=== PATIENT | male | born 1960 | race African-American/Black ===

== ENCOUNTER 2019-07-12 12:21 | Emergency (ER) | payer OTHER, BC ==
[2019-07-12] MEDS ORDERED: DICYCLOMINE HCL 10 MG CAP ONE (13:04)
[2019-07-12] MEDS ORDERED: ONDANSETRON 4 MG/2 ML VIAL ONE (13:04)
[2019-07-12] MEDS ORDERED: FAMOTIDINE 20 MG/2 ML VIAL IV ONE (13:04)
[2019-07-12] MEDS ORDERED: NA CHLORIDE 0.9% 1,000 ML ONE ×2 (13:04→14:47)
[2019-07-12 13:29] LABS: Absolute Lymphocytes (CBC) 0.7 K/uL (0.7-4.9); Basophils % 0.3 % (0-1.3); Hematocrit 41.8 % (39.6-49.0); MPV 6.9 fL (7.6-11.3); RBC Red Blood Cell Count 4.73 M/uL (4.33-5.43)
[2019-07-12 14:14] LABS: ALT/SGPT 29 U/L (12-78); AST/SGOT 14 U/L (15-37); Albumin 2.8 g/dL (3.4-5.0); Alkaline Phosphatase 69 U/L (45-117); BUN Blood Urea Nitrogen 12 mg/dL (7-18); Bicarbonate 25 mmol/L (21-32); Bilirubin Direct 0.2 mg/dL (0-0.2); Bilirubin Total 0.4 mg/dL (0.2-1.0); Glucose Level 94 mg/dL (74-106); Lipase 48 U/L (73-393); Magnesium 2.2 mg/dL (1.8-2.4); Protein, Total 6.6 g/dL (6.4-8.2); Sodium Level 137 mmol/L (136-145)
[2019-07-12] MEDS ORDERED: KCL 20 MEQ/100 mL IVPB 20 MEQ/100 ML BAG IV ONE (14:47)
--- NOTE | 2019-07-12 14:59 | RAD REPORT ---
EXAM DESCRIPTION: CT - Abdomen Pelvis W Contrast - 07/12/2019 2:33 pm CLINICAL HISTORY: Abdominal pain with diarrhea COMPARISON: none. TECHNIQUE: Computed axial tomography of the abdomen pelvis was obtained. 100 cc Isovue-300 was admin istered intravenously. Oral contrast was not requested which limits evaluation of bowel. All CT scans are performed using dose optimization technique as appropriate and may include automated exposure control or mA/KV adjustment according to patient size. FINDINGS: Small right pleural effusion A 35 millimeter mass abuts the upper pole of the left kidney and left adrenal gland. The liver, spleen, pancreas, and right kidney appear unremarkable. Normal appendix Diverticula stem from the colon without evidence of diverticulitis. 2 centimeter area of narrowing involves the transverse colon Spondylosis involves the lumbar spine Fluid is present throughout several loops of nondilated and borderline dilated small bowel. Small sherman unt of ascites IMPRESSION: A 2 centimeter area of narrowing involving the transverse colon may be secondary to a ma ss or spasm. Colonoscopy recommended 35 millimeter mass abuts the upper pole left kidney and left adrenal gland. I suspect arises from the left adrenal gland. However, it is possible it arises from the kidney. MRI is recommended Fluid is present throughout several loops of nondilated and borderline dilated small bowel which may indicate an enteritis
--- NOTE | 2019-07-12 15:55 | EDPHYS ---
Physician Documentation [facility] Name: Dean Dye Jr Age: 58 yrs Sex: Male : 1960 Arrival Date: 07/12/2019 Time: 12:23 Bed 18 Private MD: ED Physician Russell Quiroga HPI: 07/12 13:05 This 58 yrs old Black Male presents to ER via Ambulatory with complaints of Diarrhea, cp Abdominal Cramping. 13:05 The patient presents to the emergency department with nausea, that is moderate, cp vomiting, that is intermittent, diarrhea, that is continuous, abdominal pain, of the abdomen diffusely. 13:05 Onset: The symptoms/episode began/occurred 4 day(s) ago. Possible causes: unknown. cp Associated signs and symptoms: Pertinent positives: fever, Pertinent negatives: constipation, dysuria, GI bleeding. Severity of symptoms: in the emergency department the symptoms are unchanged. Historical: - Allergies: 12:30 No Known Allergies; ch - Home Meds: 12:30 Verapamil Oral [Active]; other pills unknown [Active]; ch - PMHx: 12:30 Hypertension; Hyperlipidemia; Arthritis; ch - PSHx: 12:30 back sx, L4l5; ch - Immunization history:: Adult Immunizations up to date. - Social history:: Smoking status: Patient uses tobacco products, denies chronic smoking, but will smoke occasionally, Patient uses alcohol, but reports only rare drinking. - Ebola Screening: : Patient negative for fever greater than or equal to 101.5 degrees Fahrenheit, and additional compatible Ebola Virus Disease symptoms Patient denies exposure to infectious person Patient denies travel to an Ebola-affected area in the 21 days before illness onset No symptoms or risks identified at this time. ROS: 13:10 Cardiovascular: Negative for chest pain, edema, palpitations. cp 13:10 Eyes: Negative for injury, pain, redness, and discharge. cp 13:10 Constitutional: Negative for fever, poor PO intake. 13:10 ENT: Negative for drainage from ear(s), ear pain, sore throat, difficulty swallowing, difficulty handling secretions. 13:10 Respiratory: Negative for cough, shortness of breath, wheezing. 13:10 Abdomen/GI: Positive for abdominal pain, nausea, vomiting, and diarrhea, Negative for constipation, black/tarry stool, rectal bleeding, bowel incontinence. 13:10 Back: Negative for pain at rest, pain with movement. 13:10 : Negative for urinary symptoms. 13:10 Neuro: Negative for altered mental status, headache, weakness. 13:10 All other systems are negative. Exam: 13:15 Constitutional: The patient appears in no acute distress, alert, awake, cp non-diaphoretic, non-toxic, well developed, well nourished. 13:15 Head/Face: Normocephalic, atraumatic. cp 13:15 Eyes: Periorbital structures: appear normal, Conjunctiva: normal, no exudate, no injection, Sclera: no appreciated abnormality, Lids and lashes: appear normal, bilaterally. 13:15 ENT: External ear(s): are unremarkable, Nose: is normal, Mouth: is normal, Posterior pharynx: is normal, airway is patent, no erythema, no exudate. 13:15 Chest/axilla: Inspection: normal, Palpation: is normal, no crepitus, no tenderness. 13:15 Cardiovascular: Rate: normal, Rhythm: regular, Edema: is not appreciated, JVD: is not appreciated. 13:15 Respiratory: the patient does not display signs of respiratory distress, Respirations: normal, no use of accessory muscles, no retractions, no splinting, no tachypnea, labored breathing, is not present, Breath sounds: are clear throughout, no decreased breath sounds, no stridor, no wheezing. 13:15 Abdomen/GI: Inspection: abdomen appears normal, Bowel sounds: active, all quadrants, Palpation: soft, in all quadrants, mild abdominal tenderness, in all quadrants, rebound tenderness, is not appreciated, voluntary guarding, is not appreciated, involuntary guarding, is not appreciated. 13:15 Back: ROM is normal. 13:15 Neuro: Orientation: to person, place \T\ time. Mentation: is normal, Cerebellar function: is grossly normal, Motor: moves all fours, strength is normal, Sensation: is normal. Vital Signs: 12:30 BP 120 / 80; Pulse 84; Resp 16; Temp 98.9(O); Pulse Ox 100% on R/A; Weight 127.01 kg; ch Height 6 ft. 4 in. (193.04 cm); Pain 8/10; 13:30 BP 122 / 78; Pulse 84; Resp 15; Pulse Ox 100% ; Pain 5/10; hb 14:30 BP 126 / 76; Pulse 80; Resp 15; Pulse Ox 100% on R/A; hb 15:30 BP 130 / 80; Pulse 85; Resp 14; Pulse Ox 100% on R/A; hb 12:30 Body Mass Index 34.08 (127.01 kg, 193.04 cm) ch MDM: 12:32 Patient medically screened. cp 13:00 Differential diagnosis: gastritis, pancreatitis, diverticulitis, viral gastroenteritis, cp gastroenteritis. 15:52 Special discussion: I discussed with the patient the need to follow-up with the cp PCP/specialist for the noted incidental finding on X-ray/CT scanning. 15:53 Data reviewed: vital signs, nurses notes, lab test result(s), radiologic studies, CT cp scan. 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 Response to treatment: the patient's symptoms have markedly improved after treatment, and as a result, I will discharge patient. 07/12 12:56 Order name: Basic Metabolic Panel; Complete Time: 14:32 cp 07/12 12:56 Order name: CBC with Diff; Complete Time: 14:32 cp 07/12 15:24 Interpretation: Normal except: MPV 6.9; CHRIS% 79.0; LYM% 10.0. cp 07/12 12:56 Order name: Creatinine for Radiology; Complete Time: 14:32 cp 07/12 12:56 Order name: Hepatic Function; Complete Time: 14:32 cp 07/12 12:56 Order name: Lipase; Complete Time: 14:32 cp 07/12 12:56 Order name: Magnesium; Complete Time: 14:32 cp 07/12 12:56 Order name: IV Saline Lock; Complete Time: 13:22 cp 07/12 12:56 Order name: CT Abd/Pelvis - IV Contrast Only; Complete Time: 15:24 cp 07/12 12:56 Order name: Labs collected and sent; Complete Time: 13:22 cp 07/12 15:25 Order name: PO challenge; Complete Time: 16:04 cp Administered Medications: 13:11 Drug: NS 0.9% 1000 ml Route: IV; Rate: 1 bolus; Site: right antecubital; hb 14:30 Follow up: Response: No adverse reaction; IV Status: Completed infusion; IV Intake: hb 1000ml 13:11 Drug: Bentyl 20 mg Route: PO; hb 14:00 Follow up: Response: No adverse reaction hb 13:21 Drug: Zofran 4 mg Route: IVP; Site: right antecubital; hb 14:30 Follow up: Response: No adverse reaction hb 13:41 Drug: Pepcid 20 mg Route: IVP; Site: right antecubital; hb 14:30 Follow up: Response: No adverse reaction hb 15:00 Drug: Potassium Chloride 20 mEq Route: IV; Rate: calculated rate; Site: right hb antecubital; 16:35 Follow up: Response: No adverse reaction; IV Status: Completed infusion; IV Intake: hb 100ml 16:24 Drug: Potassium Effervescent Tablet 50 mEq Route: PO; hb 16:24 Follow up: Response: Medication administered at discharge. hb Disposition: 16:49 Co-signature as Attending Physician, Russell Quiroga MD. rn Disposition: 07/12/19 15:54 Discharged to Home. Impression: Nausea and vomiting, Diarrhea, unspecified. - Condition is Stable. - Discharge Instructions: Food Choices to Help Relieve Diarrhea, Adult, Diarrhea, Adult, Nausea and Vomiting, Adult. - Prescriptions for Bentyl 20 mg Oral Tablet - take 1 tablet by ORAL route every 6 hours As needed; 30 tablet. Zofran 4 mg Oral Tablet - take 1 tablet by ORAL route every 12 hours As needed; 20 tablet. - Medication Reconciliation Form, Thank You Letter, Antibiotic Education, Prescription Opioid Use form. - Follow up: Private Physician; When: once returned home; Reason: Recheck today's complaints, recommend GI physician. - Problem is new. - Symptoms have improved. Signatures: Dispatcher [employer] Teagan Fofana, RN Russell Neal ch, MD MD rn Page, Corey, PA PA cp Baxter, Heather, RN RN hb Corrections: (The following items were deleted from the chart) 16:44 15:54 07/12/2019 15:54 Discharged to Home. Impression: Nausea and vomiting; Diarrhea, hb unspecified. Condition is Stable. Forms are Medication Reconciliation Form, Thank You Letter, Antibiotic Education, Prescription Opioid Use. Follow up: Private Physician; When: once returned home; Reason: Recheck today's complaints, recommend GI physician. Problem is new. Symptoms have improved. cp
--- NOTE | 2019-07-12 15:55 | ER ---
Nurse's Notes [facility] Name: Dean Dye Jr Age: 58 yrs Sex: Male : 1960 Arrival Date: 07/12/2019 Time: 12:23 Bed 18 Private MD: Diagnosis: Nausea and vomiting;Diarrhea, unspecified Presentation: 07/12 12:28 Presenting complaint: Patient states: NVD for four days, not feeling well, feels ch feverish at home. Transition of care: patient was not received from another setting of care. Onset of symptoms was July 08, 2019. 12:28 Method Of Arrival: Ambulatory 12:30 Acuity: [place] 3 hb 12:30 Risk Assessment: Do you want to hurt yourself or someone else? Patient reports no hb desire to harm self or others. Initial Sepsis Screen: Does the patient meet any 2 criteria? No. Patient's initial sepsis screen is negative. Does the patient have a suspected source of infection? No. Patient's initial sepsis screen is negative. Care prior to arrival: None. Triage Assessment: 12:30 General: Appears in no apparent distress. uncomfortable, Behavior is calm, cooperative, ch appropriate for age. Pain: Complains of pain in abdomen Pain currently is 8 out of 10 on a pain scale. Historical: - Allergies: 12:30 No Known Allergies; ch - Home Meds: 12:30 Verapamil Oral [Active]; other pills unknown [Active]; ch - PMHx: 12:30 Hypertension; Hyperlipidemia; Arthritis; - PSHx: 12:30 back sx, L4l5; - Immunization history:: Adult Immunizations up to date. - Social history:: Smoking status: Patient uses tobacco products, denies chronic smoking, but will smoke occasionally, Patient uses alcohol, but reports only rare drinking. - Ebola Screening: : Patient negative for fever greater than or equal to 101.5 degrees Fahrenheit, and additional compatible Ebola Virus Disease symptoms Patient denies exposure to infectious person Patient denies travel to an Ebola-affected area in the 21 days before illness onset No symptoms or risks identified at this time. Screenin:11 Abuse screen: Denies threats or abuse. Denies injuries from another. Nutritional hb screening: No deficits noted. Tuberculosis screening: No symptoms or risk factors identified. Fall Risk None identified. Assessment: 13:00 General: Appears in no apparent distress. Behavior is calm, cooperative. Pain: Pain hb currently is 5 out of 10 on a pain scale. Neuro: Level of Consciousness is awake, alert, obeys commands, Oriented to person, place, time, situation. Cardiovascular: Heart tones S1 S2 present Capillary refill < 3 seconds Patient's skin is warm and dry. Respiratory: Airway is patent Respiratory effort is even, unlabored, Respiratory pattern is regular, symmetrical, Breath sounds are clear bilaterally. GI: Abdomen is flat, Bowel sounds present X 4 quads. Abd is soft and non tender X 4 quads. Reports cramping, diarrhea, nausea, vomiting. : No signs and/or symptoms were reported regarding the genitourinary system. EENT: No signs and/or symptoms were reported regarding the EENT system. Derm: Skin is healthy with good turgor. Musculoskeletal: No signs and/or symptoms reported regarding the musculoskeletal system. 14:00 Reassessment: Patient appears in no apparent distress at this time. Patient and/or hb family updated on plan of care and expected duration. Pain level reassessed. Patient is alert, oriented x 3, equal unlabored respirations, skin warm/dry/pink. 15:00 Reassessment: Patient appears in no apparent distress at this time. No changes from previously documented assessment. Patient and/or family updated on plan of care and expected duration. Pain level reassessed. Patient is alert, oriented x 3, equal unlabored respirations, skin warm/dry/pink. 16:00 Reassessment: Patient appears in no apparent distress at this time. Patient and/or hb family updated on plan of care and expected duration. Pain level reassessed. Patient is alert, oriented x 3, equal unlabored respirations, skin warm/dry/pink. Vital Signs: 12:30 BP 120 / 80; Pulse 84; Resp 16; Temp 98.9(O); Pulse Ox 100% on R/A; Weight 127.01 kg; ch Height 6 ft. 4 in. (193.04 cm); Pain 8/10; 13:30 BP 122 / 78; Pulse 84; Resp 15; Pulse Ox 100% ; Pain 5/10; hb 14:30 BP 126 / 76; Pulse 80; Resp 15; Pulse Ox 100% on R/A; hb 15:30 BP 130 / 80; Pulse 85; Resp 14; Pulse Ox 100% on R/A; hb 12:30 Body Mass Index 34.08 (127.01 kg, 193.04 cm) ED Course: 12:23 Patient arrived in ED. as 12:30 Arm band placed on left wrist. Patient placed in an exam room, on a stretcher. 12:31 Rock Garibay PA is PHCP. cp 12:31 Russell Quiroga MD is Attending Physician. cp 12:43 Triage completed. hb 12:49 Isabella Gill RN is Primary Nurse. hb 13:11 Patient has correct armband on for positive identification. Bed in low position. Call hb light in reach. Side rails up X 1. 13:11 Inserted saline lock: 20 gauge in right antecubital area, using aseptic technique. hb Blood collected. 14:34 CT Abd/Pelvis - IV Contrast Only In Process Unspecified. EDMS 16:35 No provider procedures requiring assistance completed. IV discontinued, intact, hb bleeding controlled, No redness/swelling at site. Pressure dressing applied. Administered Medications: 13:11 Drug: NS 0.9% 1000 ml Route: IV; Rate: 1 bolus; Site: right antecubital; hb 14:30 Follow up: Response: No adverse reaction; IV Status: Completed infusion; IV Intake: hb 1000ml 13:11 Drug: Bentyl 20 mg Route: PO; hb 14:00 Follow up: Response: No adverse reaction hb 13:21 Drug: Zofran 4 mg Route: IVP; Site: right antecubital; hb 14:30 Follow up: Response: No adverse reaction hb 13:41 Drug: Pepcid 20 mg Route: IVP; Site: right antecubital; hb 14:30 Follow up: Response: No adverse reaction hb 15:00 Drug: Potassium Chloride 20 mEq Route: IV; Rate: calculated rate; Site: right hb antecubital; 16:35 Follow up: Response: No adverse reaction; IV Status: Completed infusion; IV Intake: hb 100ml 16:24 Drug: Potassium Effervescent Tablet 50 mEq Route: PO; hb 16:24 Follow up: Response: Medication administered at discharge. hb Intake: 14:30 IV: 1000ml; Total: 1000ml. hb 16:35 IV: 100ml; Total: 1100ml. hb Outcome: 15:54 Discharge ordered by . cp 16:35 Discharged to home ambulatory, with family. hb 16:35 Condition: stable 16:35 Discharge instructions given to patient, Instructed on discharge instructions, follow up and referral plans. medication usage, Demonstrated understanding of instructions, follow-up care, medications, Prescriptions given X 2. 16:44 Patient left the ED. hb Signatures: Dispatcher [employer] EDMS Teagan Colvin RN RN Julianne Watkins Corey, PA PA cp Baxter, Heather RN RN hb
[2019-07-12] MEDS ORDERED: POTASSIUM 25 MEQ EFFERV TAB ONE (16:25)
== END 2019-07-12 16:44 | disposition home or self-care (01) ==
LOC: ER 12:21
DX: R19.7 Diarrhea, unspecified (principal); I10 Essential (primary) hypertension; E78.5 Hyperlipidemia, unspecified; Z72.0 Tobacco use
CPT/HCPCS: 96365; 96361; 85025; 80048; 36415; 83735; 80076; 83690; 74177; 96375; 99284; 96366; Q9967; J7030 ×2; J2405